=== PATIENT | male | born 1980 | race Caucasian/White ===

== ENCOUNTER → 2018-04-20 | Outpatient (CLI) | payer BC ==
[2018-04-20 12:11] LABS: Anion Gap 3 (5-15); Aspartate Aminotransferase 18 U/L (15-37); Blood Urea Nitrogen 25 mg/dL (7-18); Calcium 9.4 mg/dL (8.5-10.1); Carbon Dioxide 27 mmol/L (21-32); Chloride 107 mmol/L (98-107); Glucose 87 mg/dL (74-106); Potassium 4.1 mmol/L (3.5-5.1); Sodium 137 mmol/L (136-145)
[2018-04-20 12:13] LABS: Basophils # (auto) 0 uL; Basophils % (auto) 0.5 % (0.0-2.0); Eosinophils # (auto) 0.1 uL; Eosinophils % (auto) 1.4 % (0.0-7.0); Hematocrit 47.6 % (41.0-53.0); Hemoglobin 16.3 g/dL (13.5-17.5); Lymphocytes # (auto) 2.2 uL; Lymphocytes % (auto) 26.6 % (10.0-50.0); Mean Corpuscular Hemoglobin 31.1 pg (28.0-32.0); Mean Corpuscular Hgb Conc. 34.2 g/dL (32.0-36.0); Monocytes # (auto) 0.6 uL; Monocytes % (auto) 7.7 % (0.0-12.0); Neutrophils # (auto) 5.2 uL; Neutrophils % (auto) 63.8 % (37.0-80.0); Nucleated Red Blood Cells % 0.3 %; Platelet Count (auto) 172 10^3/uL (140-450); Red Blood Cells 5.23 10^6/uL (4.5-5.90); Red Cell Distribution Width 12.9 % (11.8-14.3); White Blood Cell 8.1 10^3/uL (4.4-10.8)
[2018-04-20 12:37] LABS: Alanine Aminotransferase 40 U/L (16-61); Alkaline Phosphatase 90 U/L (45-117); BUN/Creatinine Ratio 21.4; Bilirubin, Total 0.6 mg/dL (0.2-1.0); Cholesterol 143 mg/dL (< 200); GFR African American > 60 mL/min; GFR Non-African American > 60 mL/min; HDL Cholesterol 38 mg/dL (40-59); LDL Cholesterol 98 mg/dL (< 100); Total Protein 7.3 g/dL (6.4-8.2); Triglycerides 84 mg/dL (< 150); Uric Acid 6.9 mg/dL (3.5-7.2)
== END | disposition home or self-care (01) ==
LOC: LAB 07:58
PROVIDERS: ATTEND Internal Medicine Cardiovascular Disease
DX: M23.91 Unspecified internal derangement of right knee (principal); M05.9 Rheumatoid arthritis with rheumatoid factor, unspecified; M10.9 Gout, unspecified; E55.9 Vitamin D deficiency, unspecified; E78.5 Hyperlipidemia, unspecified; E03.9 Hypothyroidism, unspecified
CPT/HCPCS: 36415; 80053; 80061; 82306; 83036; 84403; 84443; 84550; 85025; 86038; 86431

== ENCOUNTER → 2018-05-25 | Outpatient (CLI) | payer BC | END | disposition home or self-care (01) | LOC: LAB 12:42 | PROVIDERS: ATTEND Internal Medicine Cardiovascular Disease | DX: M32.9 Systemic lupus erythematosus, unspecified (principal) | CPT/HCPCS: 86225 ==

== ENCOUNTER → 2018-08-14 | Day surgery (SDC) | payer BC ==
[2018-08-10 12:29] LABS: Basophils # (auto) 0 uL; Basophils % (auto) 0.6 % (0.0-2.0); Eosinophils # (auto) 0.1 uL; Eosinophils % (auto) 1.7 % (0.0-7.0); Hematocrit 41.8 % (41.0-53.0); Hemoglobin 14.2 g/dL (13.5-17.5); Lymphocytes # (auto) 2.2 uL; Lymphocytes % (auto) 28.9 % (10.0-50.0); Mean Corpuscular Hemoglobin 30.3 pg (28.0-32.0); Mean Corpuscular Hgb Conc. 33.9 g/dL (32.0-36.0); Mean Corpuscular Volume 89.4 fL (80.0-100.0); Monocytes # (auto) 0.5 uL; Monocytes % (auto) 6.7 % (0.0-12.0); Neutrophils # (auto) 4.6 uL; Neutrophils % (auto) 62.1 % (37.0-80.0); Platelet Count (auto) 159 10^3/uL (140-450); Red Blood Cells 4.67 10^6/uL (4.5-5.90); Red Cell Distribution Width 13.6 % (11.8-14.3); White Blood Cell 7.5 10^3/uL (4.4-10.8)
[2018-08-10 12:30] LABS: Urine Blood Negative /uL (Negative); Urine Specific Gravity 1.023 (1.001-1.035)
[2018-08-10 12:47] LABS: Albumin 4.2 g/dL (3.4-5.0); Calcium 9.2 mg/dL (8.5-10.1); Potassium 3.9 mmol/L (3.5-5.1)
[2018-08-10 12:55] LABS: INR 0.99 (0.9-1.15); Partial Thromboplastin Time 24.3 sec (23.78-33.04)
[2018-08-10 14:49] LABS: Bilirubin, Total 0.5 mg/dL (0.2-1.0)
[2018-08-10 14:50] LABS: BUN/Creatinine Ratio 19.8; Total Protein 7.3 g/dL (6.4-8.2)
[~2018-08-14] VITALS: Ht 177.8 cm; Wt 86.2 kg
[~2018-08-14] MED LIST: HYDROmorphone HCL 2 MG/ML VL IV PRN; KETOROLAC TROMETH 30 MG/ML 1ML VIAL ONE; LIDOCAINE 1% HCL (LOCAL ANESTH.) INJ 20ML MDV ONE; LIDOCAINE W/ EPINEPHRINE 2% INJ 20ML VIAL ONE; MEPERIDINE HCL (25 MG/ML) 1ML VIAL ONE; METOCLOPRAMIDE HCL 5MG/ml INJ 2ml VIAL ONE; MIDAZOLAM HCL 1MG/1ML-2 ML VIAL ONE; MORPHINE SULF(PF) 0.5MG/ML 10ML VIAL ONE; NALOXONE HCL 0.4 MG/ML VIAL IV PRN; ONDANSETRON HCL 4 MG/2 ML VIAL IV ONE; PROPOFOL 10 MG/ML 20 ML IV ONE; ROCURONIUM 10MG/ML 10ML VIAL IV ONE; ROPIVACAINE 0.5% (5MG/ML) 20ML AMPULE IJ ONE; SUCCINYLCHOLINE CHLORIDE 20 MG/ML 10ML VIAL IV ONE; ceFAZolin 1GM/50ML 50 ML IV ONE
[2018-08-14 10:43] VITALS: BP 140/83
== END | disposition home or self-care (01) ==
LOC: SUR 06:14
PROVIDERS: ATTEND Orthopaedic Surgery
DX: S83.241A Other tear of medial meniscus, current injury, right knee, initial encounter (principal); M65.861 Other synovitis and tenosynovitis, right lower leg; M94.261 Chondromalacia, right knee; D16.21 Benign neoplasm of long bones of right lower limb; K21.9 Gastro-esophageal reflux disease without esophagitis; X58.XXXA Exposure to other specified factors, initial encounter; Y93.89 Activity, other specified; Y92.89 Other specified places as the place of occurrence of the external cause; Y99.8 Other external cause status; G47.33 Obstructive sleep apnea (adult) (pediatric)
CPT/HCPCS: 27355; 27635; 29876; 29879; 29881; 36415; 64447; 80053; 81003; 85025; 85610; 85730; J0330; J0690; J1885; J2001; J2175; J2250; J2270; J2704; J2765; J2795

== ENCOUNTER → 2018-10-31 | Outpatient (CLI) | payer BC ==
[2018-10-31 11:53] LABS: Basophils # (auto) 0 uL; Basophils % (auto) 0.6 % (0.0-2.0); Eosinophils # (auto) 0.2 uL; Eosinophils % (auto) 2.5 % (0.0-7.0); Hematocrit 45.6 % (41.0-53.0); Hemoglobin 15.4 g/dL (13.5-17.5); Lymphocytes # (auto) 1.8 uL; Lymphocytes % (auto) 21.6 % (10.0-50.0); Mean Corpuscular Hemoglobin 30.7 pg (28.0-32.0); Mean Corpuscular Hgb Conc. 33.8 g/dL (32.0-36.0); Mean Corpuscular Volume 90.8 fL (80.0-100.0); Monocytes # (auto) 0.6 uL; Monocytes % (auto) 7.6 % (0.0-12.0); Neutrophils # (auto) 5.5 uL; Neutrophils % (auto) 67.7 % (37.0-80.0); Nucleated Red Blood Cells % 0.2 %; Platelet Count (auto) 137 10^3/uL (140-450); Red Blood Cells 5.02 10^6/uL (4.5-5.90); White Blood Cell 8.1 10^3/uL (4.4-10.8)
[2018-10-31 12:10] LABS: Potassium 4.2 mmol/L (3.5-5.1)
[2018-10-31 12:18] LABS: Albumin 3.5 g/dL (3.4-5.0); BUN/Creatinine Ratio 22.4; Bilirubin, Total 0.5 mg/dL (0.2-1.0); Calcium 8.6 mg/dL (8.5-10.1); Total Protein 6.7 g/dL (6.4-8.2); Uric Acid 5.6 mg/dL (3.5-7.2)
== END | disposition home or self-care (01) ==
LOC: LAB 08:08
PROVIDERS: ATTEND Internal Medicine Cardiovascular Disease
DX: M53.82 Other specified dorsopathies, cervical region (principal); M23.91 Unspecified internal derangement of right knee; Z68.29 Body mass index [BMI] 29.0-29.9, adult
CPT/HCPCS: 36415; 80053; 80061; 82306; 84443; 84550; 85025; 86038; 86431

== ENCOUNTER → 2019-10-15 | Outpatient (CLI) | payer BC ==
[2019-10-17 09:02] LABS: Hepatitis B Surface Antibody Positive
[2019-10-17 11:53] LABS: Hepatitis B Surface Antigen Negative (Negative)
== END | disposition home or self-care (01) ==
LOC: CHF HDHVI 15:23
PROVIDERS: ATTEND Internal Medicine Cardiovascular Disease
DX: Z77.21 Contact with and (suspected) exposure to potentially hazardous body fluids (principal)
CPT/HCPCS: 36415; 86703; 86706; 86803; 87340

== ENCOUNTER → 2019-11-18 | Outpatient (CLI) | payer OTHER | END | disposition home or self-care (01) | LOC: LAB 15:13 | PROVIDERS: ATTEND Nurse Practitioner Family | DX: Z03.818 Encounter for observation for suspected exposure to other biological agents ruled out (principal) ==

== ENCOUNTER → 2019-12-24 | Outpatient (CLI) | payer BC ==
[2019-12-26 10:06] LABS: Hepatitis B Surface Antibody Positive
[2019-12-26 11:15] LABS: Hepatitis B Surface Antigen Negative (Negative)
== END | disposition home or self-care (01) ==
LOC: LAB 08:48
PROVIDERS: ATTEND Internal Medicine Cardiovascular Disease
DX: Z77.21 Contact with and (suspected) exposure to potentially hazardous body fluids (principal)
CPT/HCPCS: 36415; 86703; 86706; 86803; 87340

== ENCOUNTER → 2020-02-24 | Outpatient (CLI) | payer OTHER | END | disposition home or self-care (01) | LOC: LAB 16:28 | PROVIDERS: ATTEND Nurse Practitioner Family | DX: Z20.828 Contact with and (suspected) exposure to other viral communicable diseases (principal) | CPT/HCPCS: C9803; U0003 ==

== ENCOUNTER 2020-09-02 22:58 | Inpatient (IN) | payer BC, OTHER ==
[~2020-09-02] VITALS: Ht 177.8 cm; Wt 96.0 kg
[2020-09-02] MEDS ORDERED: SODIUM CHLORIDE 0.9% 2,000 ML IV ONE (23:15)
[2020-09-03 00:12] LABS: Basophils # (auto) 0.1 10 ^3/uL (0-0.2); Basophils % (auto) 1.6 % (0.0-2.0); Eosinophils # (auto) 0.3 10 ^3/uL (0-0.8); Eosinophils % (auto) 2.9 % (0.0-7.0); Hematocrit 42.3 % (41.0-53.0); Hemoglobin 14.5 g/dL (13.5-17.5); Lymphocytes # (auto) 1.4 10 ^3/uL (0.4-5.4); Lymphocytes % (auto) 15.7 % (10.0-50.0); Mean Corpuscular Hemoglobin 30.9 pg (28.0-32.0); Mean Corpuscular Hgb Conc. 34.3 g/dL (32.0-36.0); Mean Corpuscular Volume 90.1 fL (80.0-100.0); Monocytes # (auto) 0.6 10 ^3/uL (0-1.3); Monocytes % (auto) 6.7 % (0.0-12.0); Neutrophils # (auto) 6.7 10 ^3/uL (1.6-8.6); Neutrophils % (auto) 73.1 % (37.0-80.0); Platelet Count (auto) 144 10^3/uL (140-450); Red Blood Cells 4.69 10^6/uL (4.5-5.90); Red Cell Distribution Width 14.1 % (11.8-14.3); White Blood Cell 9.1 10^3/uL (4.4-10.8)
[2020-09-03] MEDS ORDERED: MORPHINE SULF INJ 2 MG/ML SYRINGE 1ML IV ONE (00:15)
[2020-09-03 00:30] LABS: Albumin 3.3 g/dL (3.4-5.0); BUN/Creatinine Ratio 15.5; Calcium 8.6 mg/dL (8.5-10.1); Potassium 4.1 mmol/L (3.5-5.1)
[2020-09-03 00:37] LABS: Bilirubin, Total 0.3 mg/dL (0.2-1.0); Total Protein 6.1 g/dL (6.4-8.2)
[2020-09-03] MEDS ORDERED: IBUPROFEN 800 MG TAB PO ONE (01:45)
[2020-09-03] MEDS ORDERED: ACETAMINOPHEN 325 MG TAB PO ONE (03:45)
[2020-09-03] MEDS ORDERED: SODIUM CHLORIDE 0.9% 1,000 ML IV ONE (03:45)
[2020-09-03] MEDS ORDERED: TEMAZEPAM 15 MG CAP PO PRN (06:00)
[2020-09-03] MEDS ORDERED: MORPHINE SULF INJ 2 MG/ML SYRINGE 1ML IV PRN (06:00)
[2020-09-03] MEDS ORDERED: ONDANSETRON HCL 4 MG/2 ML VIAL IV PRN (06:00)
[2020-09-03] MEDS ORDERED: SODIUM CHLORIDE 0.9% 1,000 ML IV SCH (06:00)
[2020-09-03] MEDS ORDERED: NITROGLYCERIN 0.4 MG SL TAB SL PRN (06:00)
[2020-09-03] MEDS ORDERED: SODIUM CHLORIDE 0.9% 500 ML IV ONE (06:00)
[2020-09-03] MEDS: MORPHINE SULFATE 4 MG/ML SYR/VIAL IV PRN ×4 (06:56→20:21)
[2020-09-03 08:58] VITALS: BP 149/91
[2020-09-03] MEDS ORDERED: FAMOTIDINE 20 MG TAB PO SCH (10:00)
[2020-09-03 11:53] LABS: Potassium 4.1 mmol/L (3.5-5.1)
[2020-09-03 12:23] LABS: Albumin 2.9 g/dL (3.4-5.0); BUN/Creatinine Ratio 15.6; Bilirubin, Total 0.4 mg/dL (0.2-1.0); Calcium 8.1 mg/dL (8.5-10.1); Total Protein 5.6 g/dL (6.4-8.2)
[2020-09-03 13:05] VITALS: BP 134/97
[2020-09-03 13:58] LABS: Alcohol, Urine < 3.0 mg/dL (0-10); Amphetamine Screen, Urine NEGATIVE (NEGATIVE); Barbiturate Scree,Urine NEGATIVE (NEGATIVE); Benzodiazephine Screen, Urine NEGATIVE (NEGATIVE); Cannabinoid Screen, Urine POSITIVE (NEGATIVE); Cocaine Screen, Urine NEGATIVE (NEGATIVE); Opiate Scree,Urine NEGATIVE (NEGATIVE); Phencyclidine Screen, Urine NEGATIVE (NEGATIVE)
[2020-09-03] MEDS: SODIUM CHLORIDE 0.9% 1,000 ML IV SCH ×3 (15:30→21:50)
[2020-09-03 16:43] VITALS: BP 155/78
[2020-09-03] MEDS ORDERED: FUROSEMIDE 40 MG/4 ML VIAL IV ONE (17:15)
[2020-09-03 22:00] VITALS: BP 144/82
[2020-09-04] MEDS: SODIUM CHLORIDE 0.9% 1,000 ML IV SCH ×4 (02:00→11:31)
[2020-09-04 05:00] VITALS: BP 132/81
[2020-09-04 05:44] LABS: Basophils # (auto) 0 10 ^3/uL (0-0.2); Basophils % (auto) 0.4 % (0.0-2.0); Eosinophils # (auto) 0.3 10 ^3/uL (0-0.8); Eosinophils % (auto) 3.3 % (0.0-7.0); Hematocrit 40.7 % (41.0-53.0); Hemoglobin 14.1 g/dL (13.5-17.5); Mean Corpuscular Hgb Conc. 34.6 g/dL (32.0-36.0); Mean Corpuscular Volume 89.7 fL (80.0-100.0); Monocytes # (auto) 0.6 10 ^3/uL (0-1.3); Neutrophils # (auto) 5.7 10 ^3/uL (1.6-8.6); Neutrophils % (auto) 66.3 % (37.0-80.0); Nucleated Red Blood Cells % 0.1 %; Platelet Count (auto) 140 10^3/uL (140-450); Red Blood Cells 4.54 10^6/uL (4.5-5.90); Red Cell Distribution Width 13.8 % (11.8-14.3); White Blood Cell 8.6 10^3/uL (4.4-10.8)
[2020-09-04 06:00] LABS: Albumin 2.8 g/dL (3.4-5.0); Calcium 7.6 mg/dL (8.5-10.1); Potassium 3.9 mmol/L (3.5-5.1)
[2020-09-04 06:03] LABS: Bilirubin, Total 0.4 mg/dL (0.2-1.0); Total Protein 5.4 g/dL (6.4-8.2)
[2020-09-04 08:27] VITALS: BP 128/88
[2020-09-04] MEDS: MORPHINE SULFATE 4 MG/ML SYR/VIAL IV PRN ×3 (08:30→21:00)
[2020-09-04] MEDS ORDERED: DOCUSATE SOD 100 MG CAP PO ONE (11:00)
[2020-09-04] MEDS ORDERED: ASCORBIC ACID 500 MG TAB PO ONE (11:00)
[2020-09-04] MEDS ORDERED: POTASSIUM CHL 20 Meq TABLET PO ONE (11:00)
[2020-09-04] MEDS ORDERED: FUROSEMIDE 40 MG/4 ML VIAL IV ONE (11:00)
[2020-09-04] MEDS ORDERED: DOCUSATE SOD 100 MG CAP PO PRN (11:00)
[2020-09-04] MEDS ORDERED: MULTIPLE VITAMINS W/ MINERALS TAB PO ONE (11:00)
[2020-09-04] MEDS: HYDROcodone-ACET 5/325MG TAB PO PRN ×2 (11:31→15:46)
[2020-09-04 13:00] VITALS: BP 138/78
[2020-09-04 17:00] VITALS: BP 139/73
[2020-09-04 21:36] VITALS: BP 138/84
[2020-09-05] MEDS: SODIUM CHLORIDE 0.9% 1,000 ML IV SCH ×3 (00:05→17:00)
[2020-09-05 05:20] VITALS: BP 116/67
[2020-09-05 06:02] LABS: Potassium 4.2 mmol/L (3.5-5.1)
[2020-09-05 06:45] LABS: Albumin 2.9 g/dL (3.4-5.0); BUN/Creatinine Ratio 15.2; Bilirubin, Total 0.4 mg/dL (0.2-1.0); Calcium 8.3 mg/dL (8.5-10.1); Total Protein 5.8 g/dL (6.4-8.2)
[2020-09-05 08:00] VITALS: BP 131/83
[2020-09-05] MEDS: MORPHINE SULFATE 4 MG/ML SYR/VIAL IV PRN ×2 (08:09→15:43)
[2020-09-05 09:00] VITALS: BP 131/83
[2020-09-05] MEDS: ASCORBIC ACID 500 MG TAB PO SCH (09:44)
[2020-09-05] MEDS: MULTIPLE VITAMINS W/ MINERALS TAB PO SCH (09:44)
[2020-09-05] MEDS: HYDROcodone-ACET 5/325MG TAB PO PRN ×3 (10:09→23:40)
[2020-09-05] MEDS: ACETAMINOPHEN 325 MG TAB PO PRN (12:53)
[2020-09-05 13:00] VITALS: BP 135/84
[2020-09-05 16:58] VITALS: BP 132/77
[2020-09-05] MEDS: Ensure HIGH Protein Chocolate 8oz Bottle PO SCH (18:00)
[2020-09-05] MEDS ORDERED: D5W/SOD CHL 0.45% 1,000 ML IV ONE (20:15)
[2020-09-05 22:00] VITALS: BP 123/76
[2020-09-05] MEDS ORDERED: SODIUM BICARBONATE 8.4 % INJ 50ML VIAL IV ONE (23:06)
[2020-09-06] VITALS (7 sets, daily range): BP systolic 111–141; BP diastolic 48–82
[2020-09-06 07:44] LABS: Basophils # (auto) 0 10 ^3/uL (0-0.2); Basophils % (auto) 0.3 % (0.0-2.0); Eosinophils # (auto) 0.3 10 ^3/uL (0-0.8); Eosinophils % (auto) 3.7 % (0.0-7.0); Hematocrit 42.9 % (41.0-53.0); Hemoglobin 14.8 g/dL (13.5-17.5); Lymphocytes # (auto) 1.7 10 ^3/uL (0.4-5.4); Lymphocytes % (auto) 20.5 % (10.0-50.0); Mean Corpuscular Hemoglobin 30.8 pg (28.0-32.0); Mean Corpuscular Hgb Conc. 34.6 g/dL (32.0-36.0); Mean Corpuscular Volume 89.1 fL (80.0-100.0); Monocytes # (auto) 0.5 10 ^3/uL (0-1.3); Monocytes % (auto) 6.7 % (0.0-12.0); Neutrophils # (auto) 5.6 10 ^3/uL (1.6-8.6); Neutrophils % (auto) 68.8 % (37.0-80.0); Nucleated Red Blood Cells % 0.4 %; Platelet Count (auto) 156 10^3/uL (140-450); Red Blood Cells 4.82 10^6/uL (4.5-5.90); Red Cell Distribution Width 13.6 % (11.8-14.3); White Blood Cell 8.1 10^3/uL (4.4-10.8)
[2020-09-06 07:50] LABS: BUN/Creatinine Ratio 16.3; Calcium 8.1 mg/dL (8.5-10.1)
[2020-09-06 08:16] LABS: Bilirubin, Total 0.3 mg/dL (0.2-1.0); Total Protein 5.9 g/dL (6.4-8.2)
[2020-09-06] MEDS: MULTIPLE VITAMINS W/ MINERALS TAB PO SCH (09:30)
[2020-09-06] MEDS: Ensure HIGH Protein Chocolate 8oz Bottle PO SCH ×3 (09:30→18:00)
[2020-09-06] MEDS: ASCORBIC ACID 500 MG TAB PO SCH (09:31)
[2020-09-06] MEDS: HYDROcodone-ACET 5/325MG TAB PO PRN ×3 (09:31→20:53)
[2020-09-06] MEDS: ACETAMINOPHEN 325 MG TAB PO PRN (12:46)
[2020-09-07 05:50] VITALS: BP 97/64
[2020-09-07 08:00] VITALS: BP 139/80
[2020-09-07 08:35] LABS: Basophils # (auto) 0 10 ^3/uL (0-0.2); Basophils % (auto) 0.5 % (0.0-2.0); Eosinophils # (auto) 0.3 10 ^3/uL (0-0.8); Hematocrit 45.4 % (41.0-53.0); Hemoglobin 15.5 g/dL (13.5-17.5); Lymphocytes # (auto) 1.7 10 ^3/uL (0.4-5.4); Mean Corpuscular Hemoglobin 30.5 pg (28.0-32.0); Mean Corpuscular Hgb Conc. 34.2 g/dL (32.0-36.0); Mean Corpuscular Volume 89.3 fL (80.0-100.0); Monocytes # (auto) 0.5 10 ^3/uL (0-1.3); Monocytes % (auto) 6.9 % (0.0-12.0); Neutrophils # (auto) 5.3 10 ^3/uL (1.6-8.6); Neutrophils % (auto) 67.6 % (37.0-80.0); Nucleated Red Blood Cells % 0.1 %; Platelet Count (auto) 163 10^3/uL (140-450); Red Blood Cells 5.08 10^6/uL (4.5-5.90); Red Cell Distribution Width 13.4 % (11.8-14.3); White Blood Cell 7.9 10^3/uL (4.4-10.8)
[2020-09-07] MEDS: MULTIPLE VITAMINS W/ MINERALS TAB PO SCH (08:41)
[2020-09-07] MEDS: Ensure HIGH Protein Chocolate 8oz Bottle PO SCH ×2 (08:41→12:00)
[2020-09-07] MEDS: ASCORBIC ACID 500 MG TAB PO SCH (08:41)
[2020-09-07 08:56] LABS: Potassium 4.2 mmol/L (3.5-5.1)
[2020-09-07 09:00] VITALS: BP 139/80
[2020-09-07 09:31] LABS: Albumin 3.4 g/dL (3.4-5.0); Bilirubin, Total 0.5 mg/dL (0.2-1.0); Calcium 8.8 mg/dL (8.5-10.1); Total Protein 6.7 g/dL (6.4-8.2)
[2020-09-07] MEDS ORDERED: ASCO500T11 PO (11:24)
[2020-09-07] MEDS ORDERED: MULT-351 PO (11:24)
[2020-09-07 12:34] VITALS: BP 137/79
[2020-09-07 12:50] VITALS: BP 137/79
== END 2020-09-07 13:20 | disposition home or self-care (01) | DRG 558 ==
LOC: ER 22:58 → TELE 09-03 05:48 → TELE-WESTW 09-03 08:53
PROVIDERS: ADMIT Nurse Practitioner; ATTEND Internal Medicine
DX: M62.82 Rhabdomyolysis (principal); E44.0 Moderate protein-calorie malnutrition; R74.01 Elevation of levels of liver transaminase levels; Z20.822 Contact with and (suspected) exposure to COVID-19; Z68.30 Body mass index [BMI] 30.0-30.9, adult; Z82.49 Family history of ischemic heart disease and other diseases of the circulatory system
CPT/HCPCS: 36415; 76705; 80053; 80307; 82550; 83874; 85025; 87426; 96361; 96374; 99291; G0378

== ENCOUNTER → 2020-09-11 | Outpatient (CLI) | payer BC ==
[~2020-09-11] MED LIST changes: +ASCO500T11 PO; -HYDROmorphone HCL 2 MG/ML VL IV PRN; -KETOROLAC TROMETH 30 MG/ML 1ML VIAL ONE; -LIDOCAINE 1% HCL (LOCAL ANESTH.) INJ 20ML MDV ONE; -LIDOCAINE W/ EPINEPHRINE 2% INJ 20ML VIAL ONE; -MEPERIDINE HCL (25 MG/ML) 1ML VIAL ONE; -METOCLOPRAMIDE HCL 5MG/ml INJ 2ml VIAL ONE; -MIDAZOLAM HCL 1MG/1ML-2 ML VIAL ONE; -MORPHINE SULF(PF) 0.5MG/ML 10ML VIAL ONE; +MULT-351 PO; -NALOXONE HCL 0.4 MG/ML VIAL IV PRN; -ONDANSETRON HCL 4 MG/2 ML VIAL IV ONE; -PROPOFOL 10 MG/ML 20 ML IV ONE; -ROCURONIUM 10MG/ML 10ML VIAL IV ONE; -ROPIVACAINE 0.5% (5MG/ML) 20ML AMPULE IJ ONE; -SUCCINYLCHOLINE CHLORIDE 20 MG/ML 10ML VIAL IV ONE; -ceFAZolin 1GM/50ML 50 ML IV ONE
[2020-09-11 11:43] LABS: Albumin 3.7 g/dL (3.4-5.0)
[2020-09-11 11:49] LABS: Bilirubin, Direct 0.2 mg/dL (0-0.2); Bilirubin, Total 0.6 mg/dL (0.2-1.0)
== END | disposition home or self-care (01) ==
LOC: LAB 09:12
PROVIDERS: ATTEND Internal Medicine Cardiovascular Disease
DX: R74.8 Abnormal levels of other serum enzymes (principal); R82.1 Myoglobinuria; R94.5 Abnormal results of liver function studies
CPT/HCPCS: 36415; 80076; 82550; 83874

== ENCOUNTER → 2020-09-18 | Outpatient (CLI) | payer BC ==
[2020-09-18 12:28] LABS: Albumin 3.8 g/dL (3.4-5.0); Bilirubin, Direct 0.2 mg/dL (0-0.2)
[2020-09-18 12:31] LABS: Bilirubin, Total 0.6 mg/dL (0.2-1.0); Total Protein 7.3 g/dL (6.4-8.2)
== END | disposition home or self-care (01) ==
LOC: LAB 09:13
PROVIDERS: ATTEND Internal Medicine Cardiovascular Disease
DX: R74.8 Abnormal levels of other serum enzymes (principal); R94.5 Abnormal results of liver function studies
CPT/HCPCS: 36415; 80076; 82550

== ENCOUNTER → 2020-11-23 | Outpatient (CLI) | payer BC ==
[~2020-11-23] VITALS: Ht 177.8 cm; Wt 90.7 kg
[2020-11-23 11:29] LABS: Basophils # (auto) 0.1 10 ^3/uL (0-0.2); Basophils % (auto) 0.7 % (0.0-2.0); Eosinophils # (auto) 0.3 10 ^3/uL (0-0.8); Eosinophils % (auto) 4.1 % (0.0-7.0); Hematocrit 43.3 % (41.0-53.0); Lymphocytes # (auto) 1.9 10 ^3/uL (0.4-5.4); Lymphocytes % (auto) 23.5 % (10.0-50.0); Mean Corpuscular Hemoglobin 30.5 pg (28.0-32.0); Mean Corpuscular Hgb Conc. 34.7 g/dL (32.0-36.0); Mean Corpuscular Volume 88.1 fL (80.0-100.0); Monocytes # (auto) 0.5 10 ^3/uL (0-1.3); Monocytes % (auto) 6.3 % (0.0-12.0); Neutrophils # (auto) 5.2 10 ^3/uL (1.6-8.6); Neutrophils % (auto) 65.4 % (37.0-80.0); Nucleated Red Blood Cells % 0.1 %; Red Blood Cells 4.91 10^6/uL (4.5-5.90); Red Cell Distribution Width 13.2 % (11.8-14.3)
[2020-11-23 12:03] LABS: Alanine Aminotransferase 56 U/L (16-61); Albumin 3.9 g/dL (3.4-5.0); Alkaline Phosphatase 99 U/L (45-117); Aspartate Aminotransferase 24 U/L (15-37); BUN/Creatinine Ratio 11.4; Bilirubin, Direct 0.2 mg/dL (0-0.2); Bilirubin, Total 0.4 mg/dL (0.2-1.0); Blood Urea Nitrogen 15 mg/dL (7-18); Calcium 8.7 mg/dL (8.5-10.1); Carbon Dioxide 28 mmol/L (21-32); Creatine Kinase IFCC 655 U/L (39-308); GFR African American 77 mL/min; GFR Non-African American 64 mL/min; Glucose 79 mg/dL (74-106); Total Protein 7.4 g/dL (6.4-8.2)
[2020-11-23 12:34] LABS: Sodium 140 mmol/L (136-145)
[2020-11-23 12:35] LABS: Anion Gap 4 (5-15); Chloride 108 mmol/L (98-107); Potassium 3.6 mmol/L (3.5-5.1)
== END | disposition home or self-care (01) ==
LOC: Rad HDHVI 08:17
PROVIDERS: ATTEND Internal Medicine Cardiovascular Disease
DX: E71.30 Disorder of fatty-acid metabolism, unspecified (principal); E71.41 Primary carnitine deficiency; R06.02 Shortness of breath; Z13.0 Encounter for screening for diseases of the blood and blood-forming organs and certain disorders involving the immune mechanism
CPT/HCPCS: 36415; 78452; 80048; 80076; 82140; 82550; 85025; 93017; 96374; A9500

== ENCOUNTER → 2021-01-18 | Outpatient (CLI) | payer BC | END | disposition home or self-care (01) | LOC: LAB 16:59 | PROVIDERS: ATTEND Internal Medicine Rheumatology | DX: M32.10 Systemic lupus erythematosus, organ or system involvement unspecified (principal) | CPT/HCPCS: 86038 ==

== ENCOUNTER → 2021-06-11 | Outpatient (CLI) | payer BC | END | disposition home or self-care (01) | LOC: LAB 13:16 | PROVIDERS: ATTEND Internal Medicine Cardiovascular Disease | DX: R94.4 Abnormal results of kidney function studies (principal) | CPT/HCPCS: 36415; 82565; 84520 ==

== ENCOUNTER → 2021-07-02 | Outpatient (CLI) | payer BC | END | disposition home or self-care (01) | LOC: LAB 13:18 | PROVIDERS: ATTEND Internal Medicine Cardiovascular Disease | DX: R74.8 Abnormal levels of other serum enzymes (principal) | CPT/HCPCS: 36415; 82550 ==

== ENCOUNTER → 2024-06-07 | Outpatient (CLI) | payer BC | END | disposition home or self-care (01) | LOC: LAB 10:17 | PROVIDERS: ATTEND Family Medicine | DX: D48.5 Neoplasm of uncertain behavior of skin (principal) ==

== ENCOUNTER → 2024-06-21 | Outpatient (CLI) | payer BC | END | disposition home or self-care (01) | LOC: LAB 10:10 | PROVIDERS: ATTEND Family Medicine | DX: D48.5 Neoplasm of uncertain behavior of skin (principal) ==